=== PATIENT | male | born 1980 | race Caucasian/White ===

== ENCOUNTER 2018-11-27 11:19 | Emergency (ER) | payer SELFPAY ==
[2018-11-27 11:25] VITALS: BP 137/77; PULSE 96; TEMP 100; BMI 70.7
--- NOTE | 2018-11-27 12:19 | PDOC ---
History of Present Illness - General Chief Complaint: Pain, Acute Stated Complaint: PAIN Time Seen by Provider: 11/27/18 11:50 History Source: Patient, Spouse Exam Limitations: No Limitations - History of Present Illness Initial Comments: 11/27/18 12:12 Pt. is a 37 y.o. M w/PMHx. of chlamydia ~2 years ago presents with left groin pain and hematuria. Pt. states that around 5 pm yesterday the intense (7-8/10) pain started and has been constant ever since. Activity makes the pain worse after the activity has ended, however Pt. endorses tenderness as the testicles rubs against his leg. Pt. states that the pain really began ~3 weeks ago and was associated with fever and a serous discharge that looked "shiny and like skin" at that time. Pt. did not come into the ED because his family believed his "belly dropped" or that he developed a hernia at that time and that it was not emergent. Pt. states that almost 2 years ago he and his was diagnosed with chlamydia and given a pill of an unknown antibiotic. Pt. states that he had only been tested positive for chlamydia at that time. Pt.'s denies any symptoms at this time. 11/27/18 12:30 CBC, CMP, UA, Scrotal US, Spiral CT, Tylenol and 1L NS was ordered to r/o renal stone vs. UTI. Timing/Duration: 24 hours Severity: moderate Modifying Factors: improves with: rest Associated Symptoms: reports: headaches. denies: chest pain, cough, fever/ chills, loss of appetite, nausea/vomiting, shortness of breath, weakness Aspirin Received prior to arrival: Yes: no aspirin today Beta Anthony Contraindications(Core Measure): Yes: Not Prescribed Past History - Past Medical History Allergies/Adverse Reactions: Allergies Allergy/AdvReac Type Severity Reaction Status Date / Time No Known Allergies Allergy Verified 11/27/18 11:20 Home Medications: Ambulatory Orders Doxycycline Hyclate 100 mg PO BID #20 capsule 11/27/18 COPD: No - Immunization History Immunization Up to Date: Yes - Suicide/Smoking/Psychosocial Hx Smoking History: Never smoked Have you smoked in the past 12 months: No Hx Alcohol Use: No Drug/Substance Use Hx: No Substance Use Type: None *Physical Exam - Vital Signs Last Vital Signs Temp Pulse Resp BP Pulse Ox 100.0 F H 96 H 18 137/77 97 11/27/18 11:22 11/27/18 11:22 11/27/18 11:22 11/27/18 11:22 11/27/18 11:22 - Physical Exam General Appearance: Yes: Nourished, Appropriately Dressed, Apparent Distress, Mild Distress HEENT: positive: Normal ENT Inspection, Normal Voice, Symmetrical, Hearing Grossly Normal Respiratory/Chest: positive: Lungs Clear, Normal Breath Sounds. negative: Respiratory Distress, Accessory Muscle Use, Labored Respiration, Crackles, Rales , Stridor, Wheezing Cardiovascular: positive: Regular Rhythm, Regular Rate, S1, S2, Tachycardia. negative: Edema, JVD, Murmur Vascular Pulses: Dorsalis-Pedis (R): 2+, Doralis-Pedis (L): 2+ Gastrointestinal/Abdominal: positive: Normal Bowel Sounds, Tender (mild LLQ tenderness ) Male Genitalia: positive: normal genitalia, testicular tenderness, epididymus tender. negative: discharge Rectal Exam: positive: deferred Musculoskeletal: positive: Normal Inspection. negative: CVA Tenderness Extremity: positive: Normal Inspection. negative: Tender, Pedal Edema, Swelling , Calf Tenderness Neurologic: positive: Fully Oriented, Alert, Normal Mood/Affect, Normal Response , Motor Strength 5/5, Responsive. negative: Facial Droop, Numbness, Confused, Disoriented Moderate Sedation - Procedure Monitoring Vital Signs: Procedure Monitoring Vital Signs Temperature 100.0 F H 11/27/18 11:22 Pulse Rate 96 H 11/27/18 11:22 Respiratory Rate 18 11/27/18 11:22 Blood Pressure 137/77 11/27/18 11:22 O2 Sat by Pulse Oximetry (%) 97 11/27/18 11:22 ED Treatment Course - LABORATORY CBC & Chemistry Diagram: 11/27/18 12:30 11/27/18 12:30 *DC/Admit/Observation/Transfer Diagnosis at time of Disposition: Testes pain - Discharge Dispostion Disposition: HOME Condition at time of disposition: Stable Decision to Admit order: No - Prescriptions Prescriptions: Doxycycline Hyclate 100 mg PO BID #20 capsule - Referrals - Patient Instructions Additional Instructions: You came in for pain in your testes and left groin. We did imaging of your abdomen, pelvis and scrotum. WE have provided you with the results. You were found to have inflammation in your left testicle. You were not found to have anything immediately wrong in your abdomen or pelvis. Please increase the fiber in your diet to prevent abdominal infection. We have started you on a new antibiotic Doxycycline 100mg. Please take TWICE a day for 10 days. Please return to the ED if you are experiencing worsening abdominal pain, worsening pain in your testes, fever, chills or any concerning symptoms. - Post Discharge Activity
--- NOTE | 2018-11-27 12:25 | PDOC ---
Attending Attestation - HPI HPI: 11/27/18 13:25 The patient is a 37 year old male with no significant PMH who presents to the emergency department with left groin pain for 2 days. The patient reports that he was at home when he had a sudden onset of groin pain with associated hematuria by which he saw some tiny skin-like discharge. The patient states that he had a similar episode several weeks ago. 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 The patient reports some low abdominal sensation and states that he has been experiencing this type of tenderness for about 6 months. The patient reports that he was treated for chlamydia 2 years ago. He denies any other symptoms . he denies any fever, chills, nausea, vomiting, diarrhea or other urinary symptoms. He denies any chest pain shortness of breath, headache of dizziness. The patient denies any other complaints. Documentation prepared by Luigi Waterman, acting as regional medical director for Herlinda Hayden MD. <Luigi Waterman - Last Filed: 11/27/18 13:25> - Resident Resident Name: Osmar Ruvalcaba - ED Attending Attestation I have performed the following: I have examined & evaluated the patient, The case was reviewed & discussed with the resident, I agree w/resident's findings & plan, Exceptions are as noted - Physicial Exam PE: 11/27/18 16:15 General Appearance: Yes: Nourished, no acute distress Respiratory/Chest: Lungs CTA, no wheezing, stridor Cardiovascular: Regular Rhythm, Regular Rate, S1, S2, Tachycardia. Gastrointestinal/Abdominal: Mild LLQ tenderness Male Genitalia: positive: normal genitalia, testicular tenderness, epididymis tender, no discharge Neurologic: A& O x 3, Normal Mood/Affect, Normal Response, Motor Strength 5/5, Responsive - Medical Decision Making 11/27/18 13:59 Laboratory Tests 11/27/18 11/27/18 11/27/18 12:30 12:30 12:30 WBC 10.4 H Hgb 15.0 Hct 42.8 Plt Count 281 BUN 16 Creatinine 1.0 Urine Blood 1+ H Urine Nitrite Negative Ur Leukocyte Esterase 2+ H Urine WBC (Auto) 252 Urine RBC (Auto) 36 Pt had low grade fevers Evidence of UTI Will give Ceftriaxone Pt getting scrotal US Will also get spiral CT 11/27/18 14:54 CT - no kidney stone identified US - epiidmooorchitis Will send GC chlamydia Will treat Given Ceftriaxone IV Will add doxy po bid x 10 days 11/27/18 16:17 <Herlinda Hayden - Last Filed: 12/01/18 16:50>
[2018-11-27] MEDS ORDERED: ACETAMINOPHEN 325 MG TABLET (FP) PO ONE (12:29)
[2018-11-27] MEDS ORDERED: SODIUM CHLORIDE 1,000 ML IV SCH (12:30)
[2018-11-27] MEDS ORDERED: ACETAMINOPHEN 1000 MG/100 ML VIAL (NON FORMULARY) IVPB ONE (12:46)
[2018-11-27 12:52] LABS: BASO % 0.7 % (0-2.0); EOS % 1.6 % (0-4.5); HEMATOCRIT 42.8 % (35.4-49); LYMPH % 23.1 % (8-40); MCH 28.6 pg (25.7-33.7); MCHC 35.1 g/dl (32.0-35.9); MEAN CELL VOLUME 81.5 fl (80-96); MEAN PLT VOLUME 8.3 fl (7.5-11.1); NEUT % 68.6 % (42.8-82.8); PLATELET COUNT 281 K/MM3 (134-434); RBC 5.25 M/mm3 (4.00-5.60); RDW 13.5 % (11.9-15.9); WHITE BLOOD COUNT 10.4 K/mm3 (4.0-10.0)
[2018-11-27 12:55] LABS: URINE APPEARANCE SLCLOUDY; URINE BILIRUBIN NEGATIVE (<2.0 mg/dL); URINE COLOR YELLOW; URINE GLUCOSE (UA) NEGATIVE (NEGATIVE); URINE KETONE NEGATIVE (NEGATIVE); URINE LEUK ESTERASE 2+ (NEGATIVE); URINE NITRITE NEGATIVE (NEGATIVE); URINE PROTEIN NEGATIVE (NEGATIVE); URINE UROBILINOGEN NEGATIVE mg/dL (0.2-1.0)
[2018-11-27 13:02] LABS: EPI CELLS RARE /HPF (FEW); URINE MUCUS RARE; YEAST FEW
[2018-11-27 13:09] LABS: ALK PHOS 114 U/L (45-117); ANION GAP 8 MMOL/L (8-16); BILIRUBIN,TOTAL 0.6 mg/dL (0.2-1); BLOOD UREA NITROGEN 16 mg/dL (7-18); CALCIUM 8.8 mg/dL (8.5-10.1); CHLORIDE 103 mmol/L (98-107); CO2 26 mmol/L (21-32); GLUCOSE,RANDOM 148 mg/dL (74-106); MAGNESIUM 2.1 mg/dL (1.8-2.4); POTASSIUM 3.7 mmol/L (3.5-5.1); SGOT/AST 36 U/L (15-37); SGPT/ALT 94 U/L (13-61); SODIUM 137 mmol/L (136-145); TOT PROT 7.5 g/dl (6.4-8.2)
[2018-11-27] MEDS ORDERED: cefTRIAXone SODIUM 1 GM VIAL ONE (15:20)
[2018-11-27] MEDS ORDERED: LIDOCAINE HCL 1%, 10 MG/ML (20ML VIAL) ONE (15:21)
== END 2018-11-27 15:35 | disposition home or self-care (01) ==
LOC: JER 11:19
PROC: 3E02329 Introduction of Other Anti-infective into Muscle, Percutaneous Approach (ICD-10-PCS; principal; 2018-11-27)
PROC: 3E033NZ Introduction of Analgesics, Hypnotics, Sedatives into Peripheral Vein, Percutaneous Approach (ICD-10-PCS; 2018-11-27)
DX: N39.0 Urinary tract infection, site not specified (principal); N45.3 Epididymo-orchitis
CPT/HCPCS: 36415; 74176; 76870-TC; 80053; 81003; 81015; 83605; 83735; 85025; 87040; 87086; 87389; 87491; 87591; 99283-25; J0131; J7030

== ENCOUNTER 2023-06-26 19:17 | Emergency (ER) | payer OTHER ==
[2023-06-26 19:27] VITALS: BP 140/78; PULSE 57; RESP 18; TEMP 97.6; BMI 36.0
[2023-06-26] MEDS ORDERED: FAMOTIDINE 20 MG/50 ML IVPB 20 MG/50 ML MG IVPB ONE ×2 (20:18→20:28)
[2023-06-26] MEDS ORDERED: ACETAMINOPHEN 1000 MG/100 ML BAG IVPB ONE (20:18)
[2023-06-26] MEDS ORDERED: SUCRALFATE 1 GM/10 ML UNIT DOSE CUPS PO ONE (20:20)
[2023-06-26] MEDS ORDERED: SUCRALFATE 1 GM TABLET (FP) ONE (20:27)
[2023-06-26] MEDS ORDERED: ACETAMINOPHEN INJECTION 100 ML IVPB ONE (20:28)
[2023-06-26 20:39] LABS: BASO % 0.4 % (0-2.0); HEMATOCRIT 42.9 % (35.4-49); HEMOGLOBIN 14.5 GM/dL (11.7-16.9); MCH 27.4 pg (25.7-33.7); MCHC 33.9 g/dl (32.0-35.9); MEAN CELL VOLUME 80.9 fl (80-96); MEAN PLT VOLUME 8.5 fl (7.5-11.1); MONO % 5.1 % (3.8-10.2); NEUT % 54.5 % (42.8-82.8); PLATELET COUNT 263 10^3/uL (134-434); RDW 13.6 % (11.9-15.9); WHITE BLOOD COUNT 7.3 K/mm3 (4.0-10.0)
[2023-06-26 20:40] LABS: PH,URINE 5.5 (5.0-8.0); URINE APPEARANCE CLEAR; URINE BILIRUBIN NEGATIVE (NEGATIVE); URINE COLOR YELLOW; URINE GLUCOSE (UA) TRACE (NEGATIVE); URINE KETONE NEGATIVE (NEGATIVE); URINE LEUK ESTERASE NEGATIVE (NEGATIVE); URINE NITRITE NEGATIVE (NEGATIVE); URINE PROTEIN NEGATIVE (NEGATIVE); URINE UROBILINOGEN 0.2 mg/dL (0.2-1.0)
[2023-06-26 20:59] LABS: POTASSIUM 4.2 mmol/L (3.5-5.1)
[2023-06-26 21:03] LABS: BLOOD UREA NITROGEN 16.6 mg/dL (7-18); CALCIUM 9.6 mg/dL (8.5-10.1)
[2023-06-26 21:08] LABS: BILIRUBIN,TOTAL 0.4 mg/dL (0.2-1); TOT PROT 7.2 g/dl (6.4-8.2)
== END 2023-06-26 21:45 | disposition home or self-care (01) ==
LOC: JER 19:17
PROC: 3E033GC Introduction of Other Therapeutic Substance into Peripheral Vein, Percutaneous Approach (ICD-10-PCS; principal; 2023-06-26)
PROC: 3E033GC Introduction of Other Therapeutic Substance into Peripheral Vein, Percutaneous Approach (ICD-10-PCS; 2023-06-26)
DX: R10.13 Epigastric pain (principal)
CPT/HCPCS: 36415; 71045-TC-FY; 80053; 81003; 83690; 84484; 85025; 93005; 93010; 99285-25

== ENCOUNTER 2023-10-19 09:43 | Emergency (ER) | payer OTHER ==
[2023-10-19] MEDS ORDERED: IBUPROFEN 600 MG TABLET (FP) PO ONE ×2 (10:46→10:55)
[2023-10-19 11:35] VITALS: BP 150/85; PULSE 85; RESP 18; TEMP 98; BMI 30.2
== END 2023-10-19 11:04 | disposition home or self-care (01) ==
LOC: JERFT 09:43
DX: M54.50 Low back pain, unspecified (principal); M54.2 Cervicalgia; R51.9 Headache, unspecified; S16.1XXA Strain of muscle, fascia and tendon at neck level, initial encounter; H57.89 Other specified disorders of eye and adnexa; V49.40XA Driver injured in collision with unspecified motor vehicles in traffic accident, initial encounter; Y93.I9 Activity, other involving external motion
CPT/HCPCS: 99283-25

== ENCOUNTER 2024-09-11 19:33 | Emergency (ER) | payer SELFPAY ==
[2024-09-11 19:42] VITALS: BP 148/78; PULSE 70; RESP 16; TEMP 98.1; BMI 32.9
== END 2024-09-11 21:55 | disposition home or self-care (01) ==
LOC: JERFT 19:33
DX: S82.831A Other fracture of upper and lower end of right fibula, initial encounter for closed fracture (principal); W50.0XXA Accidental hit or strike by another person, initial encounter
CPT/HCPCS: 73610-TC-RT-FY; 99283-25